=== PATIENT | male | born 1985 | race Two or more races ===

== ENCOUNTER 2019-12-09 22:16 | Emergency (ER) | payer OTHER ==
[~2019-12-09] VITALS: Ht 175.3 cm; Wt 83.1 kg
--- NOTE | 2019-12-09 23:27 | RAD ---
Exam: Chest with right RIBS INDICATION: Right pectoral pain. TECHNIQUE: Frontal view of the chest with frontal and lateral views of the right ribs Comparisons: None FINDINGS: The cardiomediastinal silhouette and pulmonary vessels are within normal limits. The lung and pleural spaces are clear. Linear lucency is noted within the posterior lateral 10th rib. IMPRESSION: 1. Question nondisplaced fracture involving the posterolateral 10th rib. Correlate with point tenderness. 2. No acute cardiopulmonary process. Electronically signed by: Rogelio Masters MD (12/09/2019 11:24 PM) [facility]
[2019-12-09] MEDS ORDERED: CYCL10TA2 PO (23:38)
[2019-12-09] MEDS ORDERED: NAPR-514 PO (23:38)
--- NOTE | 2019-12-09 23:38 | PHYS DOC ---
Past Medical History Past Medical History: No Pertinent History (LINN COLEMAN APRN) Past Surgical History: No Surgical History (LINN COLEMAN APRN) Alcohol Use: Occasionally (LINN COLEMAN APRN) Attending Signature I have participated in the care of this patient and I have reviewed and agree with all pertinent clinical information above including history, exam, and recommendations. (EDENILSON ROBLES MD) Adult General Chief Complaint Chief Complaint: RIB PAIN HPI HPI Patient is a 34 year old male who presents to the emergency department with complaints of pain in his right pectoral muscle that is worse with palpation and deep breathing. He states that he had the flu about 2 weeks ago. Patient denies any recent injury. He states that last night he felt short of breath, he denies any shortness of breath or wheezing at this time. Patient denies any palpitations, diaphoresis, nausea, vomiting, abdominal pain, back pain, or fever. He denies any swelling, redness, warmth, or rash to his right pectoral muscle. Patient states that there is tenderness of his right pectoral muscle located at 7:00 when lateral to his nipple. He denies any drainage or bleeding from his nipple. He currently rates pain as 9 out of 10 on the pain scale, he denies any alleviating factors, the pain is worse with movement, palpation and coughing. All other ROS is neg unless otherwise noted in HPI. (LINN COLEMAN APRN) Review of Systems Review of Systems See Above (LINN COLEMAN APRN) Allergies Allergies Allergies Coded Allergies Type Severity Reaction Last Updated Verified No Known Drug Allergies 12/09/19 No (EDENILSON ROBLES MD) Physical Exam Physical Exam See Above Constitutional: Well developed, well nourished, no acute distress, non-toxic appearance. [] HENT: Normocephalic, atraumatic, bilateral external ears normal, nose normal. [] Eyes: PERRLA, EOMI, conjunctiva normal, no discharge. [] Neck: Normal range of motion, no tenderness, supple, no stridor. [] Cardiovascular:Heart rate regular rhythm, no murmur [] Lungs & Thorax: Bilateral breath sounds clear to auscultation, Respirations even and unlabored, no retractions, no respiratory distress; tenderness with palpation of lateral right pectoral muscle located at 7:00, no erythema, no warmth, no swelling [] Skin: Warm, dry, no erythema, no rash. [] Back: No tenderness Extremities: No cyanosis, ROM intact, no edema. [] Neurologic: Alert and oriented X 3, no focal deficits noted. [] Psychologic: Affect normal, judgement normal, mood normal. [] (LINN COLEMAN APRN) Current Patient Data Vital Signs Vital Signs Date Time Temp Pulse Resp B/P (MAP) Pulse Ox O2 Delivery O2 Flow Rate FiO2 12/10/19 00:00 98.3 79 16 98 98.3 12/09/19 22:22 132/77 (95) Room Air (EDENILSON ROBLES MD) EKG EKG [] (LINN COLEMAN APRN) Radiology/Procedures Radiology/Procedures PROCEDURE: RIBS RIGHT AND PA CHEST Exam: Chest with right RIBS INDICATION: Right pectoral pain. TECHNIQUE: Frontal view of the chest with frontal and lateral views of the right ribs Comparisons: None FINDINGS: The cardiomediastinal silhouette and pulmonary vessels are within normal limits. The lung and pleural spaces are clear. Linear lucency is noted within the posterior lateral 10th rib. IMPRESSION: 1. Question nondisplaced fracture involving the posterolateral 10th rib. Correlate with point tenderness. 2. No acute cardiopulmonary process. [] (LINN COLEMAN APRN) Course & Med Decision Making Course & Med Decision Making Pertinent Labs and Imaging studies reviewed. (See chart for details) [] (LINN COLEMAN APRN) Dragon Disclaimer Dragon Disclaimer This electronic medical record was generated, in whole or in part, using a voice recognition dictation system. (LINN COLEMAN APRN) Departure Departure Impression: Primary Impression: Strain of right pectoralis muscle Disposition: HOME, SELF-CARE Condition: STABLE Referrals: VIOLA DAVIS MD (PCP) Patient Instructions: Muscle Strain, [id number] Additional Instructions: Fill the prescription(s) and use as directed. Apply heat or ice for to sore areas as needed for comfort. Activity as tolerated. Follow up with your primary care doctor this week if symptoms persist, return to the ER if symptoms worsen. Scripts Naproxen (NAPROXEN) 500 Mg Tablet 1 TAB PO BID PRN for PAIN for 10 Days, #20 TAB 0 Refills Prov: LINN COLEMAN APRN 12/09/19 Cyclobenzaprine Hcl (CYCLOBENZAPRINE HCL) 10 Mg Tablet 1 TAB PO TID PRN for PAIN, #30 TAB 0 Refills Prov: LINN COLEMAN APRN 12/09/19 Problem Qualifiers Primary Impression: Strain of right pectoralis muscle Encounter type: initial encounter Qualified Codes: S29.011A - Strain of muscle and tendon of front wall of thorax, initial encounter LINN COLEMAN APRN Dec 09, 2019 23:38 EDENILSON ROBLES MD Dec 10, 2019 05:49
[2019-12-10] VITALS: BP 107/58
== END 2019-12-09 23:55 | disposition home or self-care (01) ==
LOC: ER 22:16
DX: S29.011A Strain of muscle and tendon of front wall of thorax, initial encounter (principal); R06.02 Shortness of breath; X58.XXXA Exposure to other specified factors, initial encounter; Y93.89 Activity, other specified; Y92.89 Other specified places as the place of occurrence of the external cause; Y99.8 Other external cause status
CPT/HCPCS: 71101; 99284